=== PATIENT | female | born 1985 | race Caucasian/White ===

== ENCOUNTER 2019-08-31 22:13 | Emergency (ER) | payer BC ==
[~2019-08-31] VITALS: Ht 162.6 cm; Wt 81.1 kg
[~2019-08-31 22:13] MED LIST: HYDR-4011 PO; IBUP-1542 PO
[2019-08-31 22:21] VITALS: Ht 162.6 cm; Wt 81.1 kg
[2019-08-31] MEDS ORDERED: ONDANSETRON 4 MG INJ IV STA (22:39)
[2019-08-31] MEDS ORDERED: KETOROLAC 15 MG INJ IV STA (22:39)
[2019-08-31] MEDS ORDERED: morphine 4 MG/ML VIAL IV STA (22:39)
[2019-09-01 01:35] VITALS: BP 130/82; PULSE 80; RESP 18
== END 2019-09-01 02:42 | disposition home or self-care (01) ==
LOC: E/R 22:13
DX: N83.201 Unspecified ovarian cyst, right side (principal); R10.2 Pelvic and perineal pain
CPT/HCPCS: 76830; 76856; 80053; 81001; 81025; 83690; 85025; 96374; 96375; 99285; J1885; J2270; J2405